=== PATIENT | female | born 1945 | race Caucasian/White ===

== ENCOUNTER → 2019-09-03 11:19 | Outpatient (BNVA) | payer MEDICARE, SELFPAY | PROVIDERS: Family Provider Family Medicine; Visit Provider Nurse Practitioner Family | DX: R05 Cough (principal); R50.9 Fever, unspecified; R53.83 Other fatigue | CPT/HCPCS: 87635 ==

== ENCOUNTER 2019-11-01 10:16 | Outpatient (CLI) | payer MEDICARE, SELFPAY ==
--- NOTE | 2019-11-01 10:37 | MM_ITS ---
WS: [id number] BILATERAL DIGITAL DIAGNOSTIC MAMMOGRAM MAMMOGRAPHY WITH CAD CLINICAL INFORMATION: MASS ON LEFT COMPARISON: and September 17, 2015. TECHNIQUE: Bilateral CC, MLO, and ML views. FINDINGS: Palpable marker upper outer left breast. The breasts are composed of heterogeneous fibroglandular density, which can limit the detection of sm all underlying mass lesions. In the area of palpable concern, dense parenchymal tissue. Ovoid asymmet ry in this area measuring 6.5 mm best seen on the cc view. Ultrasound was performed of this area. See comment below. Additional ovoid nodule along the posterior nipple line left breast appears more prominent compared t o 2016. Recommend ultrasound of this area for further evaluation. Right breast is unremarkable and unchanged in appearance compared to previous. ULTRASOUND BREAST LEFT TECHNIQUE: Ultrasound left breast focused area of concern. CLINICAL INFORMATION: MASS ON LEFT COMPARISON: None. FINDINGS: Ultrasound left breast at the 12:00 position. Underlying dense parenchymal tissue. Hypoechoic lesion at the 12:00 position measuring 6.3 x 5.4 x 8.2 mm This appears to represent a simple cyst. This has a benign appearance. MM/[place] [id number] IMPRESSION: BI-RADS: 0-Incomplete: Need additional imaging evaluation FOLLOW UP: Need Additional Imaging ADDITIONAL ULTRASOUND RECOMMENDED OF A 10 MM OVOID NODULE POSTERIOR NIPPLE LINE MID DEPTH. THIS IS BEST SEEN ON THE MLO VIEW.
== END 2019-11-01 10:17 | disposition home or self-care (01) ==
LOC: RADSHAW 10:25
PROVIDERS: PCP Family Medicine; Visit Provider Family Medicine
DX: N63.25 Unspecified lump in the left breast, overlapping quadrants; N64.89 Other specified disorders of breast
CPT/HCPCS: 76642; 77066